=== PATIENT | male | born 1975 | race Caucasian/White ===

== ENCOUNTER 2023-10-19 07:00 | Outpatient (NON) | payer OTHER, SELFPAY | END 2023-10-19 07:01 | disposition home or self-care (01) | LOC: ANHLAB 10-20 09:53 | PROVIDERS: PCP Family Medicine; Visit Provider Internal Medicine Gastroenterology | DX: K22.70 Barrett's esophagus without dysplasia (principal) | CPT/HCPCS: 88305 ==

== ENCOUNTER 2023-10-19 08:30 | Day surgery (SDC) | payer OTHER, SELFPAY ==
[2023-10-12 13:48] VITALS: BMI 31.0
[2023-10-13 11:48] VITALS: BMI 31.5
[2023-10-19 10:15] VITALS: BP 149/119; PULSE 90; RESP 18; TEMP 37.2; O2SAT 98; BMI 32.6
--- NOTE | 2023-10-19 10:27 | PM.HPGS ---
History of Present Illness History of Present Illness Consent: Risks, benefits, and alternatives have been discussed and questions answered. Patient agrees to proceed with procedure. Chief complaint: Sorenson's Esophagus Narrative: Da Hanson is a 48 year old male referred for EGD is known to have Sorenson's esophagus. Was diagnosed approximately 6-7 years prior to this. He also has a history of acid reflux. Typically has nocturnal regurgitation. Symptoms are fairly well controlled taking omeprazole on a daily basis. He occasionally will have breakthrough symptoms does not watch his diet. Patient's family history is noncontributory. Patient has a past medical history of hemochromatosis. Review of Systems Review of Systems: All systems reviewed & are unremarkable except as noted in HPI and below PMFSH Past Medical History Medical History (Updated 08/04/23 @ 15:49 by Martina Silver APRN) Barretts esophagus Chronic sinusitis Colon cancer screening Diverticulosis GERD (gastroesophageal reflux disease) Hemochromatosis Hyperplastic colon polyp Hypertension Surgical History Surgical History H/O esophagogastroduodenoscopy (~07/2020) Family History Family History Father Hypertension Grandparent Cancer Diabetes mellitus Hypertension Social History Social History Smoking status: Never smoker Alcohol intake: current Alcohol use details: occasional beer Substance use: never Substance use type: does not use Living arrangements: with family Spiritual care concerns: No Meds Home Medications and Allergies Home Medications Medication Instructions Recorded Confirmed Type omeprazole 40 mg capsule,delayed 40 mg PO DAILY #90 caps 10/09/23 10/19/23 Rx release losartan 100 mg tablet 100 mg PO DAILY #90 tabs 10/16/23 10/19/23 Rx Allergies Allergy/AdvReac Type Severity Reaction Status Date / Time No Known Allergies Allergy Verified 10/19/23 10:11 Vital Signs Vital Signs - 24 hr 10/19/23 10:15 Temperature 98.9 F Pulse Rate 90 Respiratory Rate 18 Blood Pressure 149/119 H Pulse Oximetry 98 Oxygen Delivery Room Air Exam Narrative: Physical exam reveals patient to be alert. Vital signs stable. HEENT exam is unremarkable. Patient is anicteric. Lungs are clear to auscultation and percussion. Heart is without murmur extra sounds. Abdomen bowel sounds are present soft nontender with no organomegaly. Assessment and Plan Assessment and plan (1) Barretts esophagus: Code(s): K22.70 - Sorenson's esophagus without dysplasia Status: Acute Assessment and Plan: Patient with a history of Sorenson's esophagus. Currently symptoms controlled with omeprazole 40mg p.o. daily. Plan to continue anti-reflux measures. Surveillance EGD is advised at 3 year intervals. (2) GERD (gastroesophageal reflux disease): Qualifiers: Esophagitis presence: without esophagitis Qualified Code(s): K21.9 - Gastro-esophageal reflux disease without esophagitis Code(s): K21.9 - Gastro-esophageal reflux disease without esophagitis Status: Chronic
[2023-10-19] MEDS: LACTATED RINGERS 1,000 ML 150 ML IV CONT (10:29)
--- NOTE | 2023-10-19 10:56 | P.PNAN_ITS ---
Anes - Initial Pre Proc Eval Procedure: Operation Date: 10/19/23 11:00 Proposed Procedures p Esophagogastroduodenoscopy - Derrick Story MD Date/Time: 10/19/23 10:56 Surgeon: Derrick Story MD Pre Op Diagnosis: Sorenson's Esophagus Patient Data Age: 48 Gender: M Height: 1.85 m Weight: 112.3 kg Last Vital Signs Temp 37.2 C 10/19/23 10:15 Pulse 90 10/19/23 10:15 Resp 18 10/19/23 10:15 BP 149/119 H 10/19/23 10:15 Pulse Ox 98 10/19/23 10:15 O2 Del Method Room Air 10/19/23 10:15 Allergies Allergy/AdvReac Type Severity Reaction Status Date / Time No Known Allergies Allergy Verified 10/19/23 10:11 Home Medications Medication Instructions Recorded Confirmed Type omeprazole 40 mg capsule,delayed 40 mg PO DAILY #90 caps 10/09/23 10/19/23 Rx release losartan 100 mg tablet 100 mg PO DAILY #90 tabs 10/16/23 10/19/23 Rx Patient hx anesthesia problems: none Family hx anesthesia problems: none Results Review: All pre-operative results and documents have been reviewed as part of the pre- operative evaluation. [facility] Past Medical History Medical History Barretts esophagus Chronic sinusitis Colon cancer screening Diverticulosis GERD (gastroesophageal reflux disease) Hemochromatosis Hyperplastic colon polyp Hypertension Surgical History Surgical History H/O esophagogastroduodenoscopy (~07/2020) Family History Family History Father Hypertension Grandparent Cancer Diabetes mellitus Hypertension Social History Social History Smoking status: Never smoker Alcohol intake: current Alcohol use details: occasional beer Substance use: never Substance use type: does not use Living arrangements: with family Spiritual care concerns: No Anes - Eval Final PreProcedure Day of Procedure 10/19/23 10:56 Patient weight: obese Heart: regular rate and rhythm Lungs: clear to auscultation Airway: Mallampati scale class II Neurological: alert and oriented Last oral intake: >/= 8 hours ASA classification: II Emergent: no Anesthetic plan: proceed Anesthesia type and monitoring: general GIVS and standard monitoring Results Review: All pre-operative results and documents have been reviewed as part of the pre- operative evaluation. Informed Consent: The patient's anesthetic plan and its attendant risks and benefits were discussed with the patient/family/POA. Questions were solicited and answers provided to the satisfaction of the patient/family/POA.
[2023-10-19 11:11] VITALS: BP 143/97; PULSE 97; RESP 16; O2SAT 94
[2023-10-19 11:21] VITALS: BP 144/96; PULSE 88; RESP 20; O2SAT 95
[2023-10-19 11:31] VITALS: BP 156/105; PULSE 61; RESP 20; O2SAT 95
--- NOTE | 2023-10-19 11:57 | WPDANESPN ---
Anes - Prog Note Post-Op Date/Time: 10/19/23 11:57 Cardiovascular status: normal Respiratory status: normal Airway patency: baseline Mental status: baseline Post-Op hydration status: normal Vital Signs: Last Vital Signs Temp 37.2 C 10/19/23 10:15 Pulse 61 10/19/23 11:31 Resp 20 10/19/23 11:31 BP 156/105 H 10/19/23 11:31 Pulse Ox 95 10/19/23 11:31 O2 Del Method Room Air 10/19/23 11:31 O2 Flow Rate 4 10/19/23 11:11 Pain Score (VAS): 0/10 I/O: Intake & Output 10/18/23 10/19/23 10/19/23 23:59 07:59 15:59 Intake Total 600 Balance 600 Patient Feedback: Patient satisfied with anesthetic care.
== END 2023-10-19 11:43 | disposition home or self-care (01) ==
PROVIDERS: PCP Family Medicine; Visit Provider Internal Medicine Gastroenterology
PROC: 0DJ08ZZ Inspection of Upper Intestinal Tract, Via Natural or Artificial Opening Endoscopic (ICD-10-PCS; CPT 43235; principal; 2023-10-19 11:00)
DX: K22.70 Barrett's esophagus without dysplasia (principal)
CPT/HCPCS: 43239